=== PATIENT | male | born 1980 | race Caucasian/White ===

== ENCOUNTER 2016-04-27 17:28 | Emergency (ER) | payer OTHER ==
--- NOTE | 2016-04-27 17:56 | ERNOTE ---
Lower Extremity HPI - General Lower Extremities Pain: foot: right Time Seen by Provider: 04/27/16 17:43 Source: patient Exam Limitations: no limitations - Immun/Allergies/Home Medications Immunizations: IMMUNIZATION HX Immunizations Up to Date Yes History of Influenza Vaccine No Allergies/Adverse Reactions: Allergies Allergy/AdvReac Type Severity Reaction Status Date / Time ANTIBIOTIC EYE DROP Allergy Unknown Other Uncoded 04/27/16 17:39 Home Medications: HOME MEDICATIONS Polyethylene Glycol 3350 [Miralax] 17 gm PO DAILY PRN 05/07/14 [Last Taken 09/16] LORazepam [Ativan] 0.5 mg PO QID PRN 02/20/15 [Last Taken 02/20/15] Colchicine/Probenecid [Probenecid-Colchicine Tabs] 1 tab PO DAILY 01/07/16 [ Last Taken Unknown] Olopatadine HCl [Patanol] 1 - 2 drop EACHEYE BID #5 ml 01/10/16 [Last Taken Unknown] Meloxicam [Mobic] 15 mg PO DAILY 04/27/16 [Last Taken Unknown] - History of Present Illness Narrative: Patient has had problem with his right foot for about six weeks. He denies any injury and saw Dr Bailey over a month ago, was started on mobic and told to use a compression stocking. The swelling and pain has not gotten better and as he was unable to see his doctor today he came to the ER. The swelling in his toe has gotten better. He denies any other symptoms Method of Injury: Reports: no apparent injury Associated Symptoms: Denies: unable to bear weight, headache, chest pain, vomiting/diarrhea Other Injuries: Reports: none Subsequent Symptoms: Denies: sensory loss Review of Systems - Review of Systems Constitutional: Absent: recent illness, fever ENT: Present: other - mild URI symptoms Respiratory: Absent: shortness of breath, cough Cardiology: Absent: chest pain Gastrointestinal/Abdominal: Absent: nausea, vomiting, abdominal pain Genitourinary: Present: no symptoms reported Musculoskeletal: Present: See HPI Neurological: Absent: weakness, numbness - Patient's Past Medical History Patient History - Medical: Other - gout Patient History - Cardiac/Respiratory: No pertinent hx Patient History - Cancer: No Hx of Cancer Patient History - Surgical Procedures: No surgical history - Social History Living Situations: home Smoking Status: Never smoker Alcohol Use: rarely Drug Use: none - Immunizations Immunizations Up to Date: Yes ED Progress - Results and Orders Patient's Lab Results:: I have reviewed the patient's lab results. - Vital Signs Patient's Vital Signs:: I have reviewed the patient's vital signs. Vital Signs: Vital Signs 04/27/16 17:32 Temperature 36.5 C Pulse Rate 96 Respiratory 14 Rate Blood Pressure 133/88 O2 Sat by Pulse 95 Oximetry - X-Ray X-Ray #1 X-Ray: foot - soft tissue swelling, no acute bony injury Interpretation: Interp. by me - Progress/Reassessment Chief Complaint: Lower Extremity Pain/ Injury Progress Note-Subjective: 04/27/16 18:43 explained test results Departure Clinical Impression: Foot pain, right - Departure Disposition: Home self-care Condition: Good Additional Instructions: take your medications as instructed call Dr Bailey for a follow up appointment Referrals: Sera Bailey DPM [Staff Physician] -
[2016-04-27 18:10] LABS: Hemoglobin 15.9 gm/dL (13.5-18.0); Mean Cell Volume 92.4 fl (78-100); Mean Corpuscular Hemoglobin 31.9 pg (27-31); Mean Corpuscular Hgb Conc 34.6 g/dl (32-36); Mean Platelet Volume 10.8 fl (6.0-9.5); Neutrophil # 2.5 K/mm3 (1.3-6.0); Neutrophil % 57.7 % (42-75.0); Platelet Count 192 K/mm3 (150-450); Red Blood Count 4.98 M/mm3 (4.7-6.0); Red Cell Distribution Width 12.8 % (11.5-14.0); White Blood Count 4.4 K/mm3 (4.0-10.5)
[2016-04-27 18:25] LABS: Albumin * 3.7 gm/dl (3.4-5.0); Anion Gap 12.6 mmol/L (6.8-13.8); BUN/Creatinine Ratio 8.1 (9.0-21.6); Bilirubin, Total 0.6 mg/dL (0.0-1.1); CRP 0.5 mg/dL (0.0-0.9); Ca. Corrected For Albumin 9.2 mg/dL (8.4-10.2); Calcium * 9.3 mg/dL (7.9-10.9); Carbon Dioxide 26.4 mmol/L (24-32.6); Uric Acid 8.9 mg/dL (2.6-7.2)
[2016-04-27 18:58] VITALS: BP 121/65
== END 2016-04-27 18:45 | disposition home or self-care (01) ==
LOC: ER 17:28
DX: M79.671 Pain in right foot (principal)

== ENCOUNTER 2016-12-15 14:23 | Emergency (ER) | payer OTHER ==
--- NOTE | 2016-12-15 14:39 | ERNOTE ---
ER Male HPI Date of Service: 12/15/16 Stated Complaint: TROUBLE URINATING ER Male: dysuria Time Seen by Provider: 12/15/16 14:34 Source: patient Immunizations: IMMUNIZATION HX Immunizations Up to Date Yes History of Influenza Vaccine Yes Hx Pneumococcal Vaccination No Allergies/Adverse Reactions: Allergies ANTIBIOTIC EYE DROP Allergy (Unknown, Uncoded 04/27/16 17:39) Other irritated eye Home Medications: HOME MEDICATIONS Polyethylene Glycol 3350 [Miralax] 17 gm PO DAILY PRN 05/07/14 [Last Taken 09/16] LORazepam [Ativan] 0.5 mg PO QID PRN 02/20/15 [Last Taken 02/20/15] Probenecid/Colchicine [Probenecid-Colchicine Tabs] 1 tab PO DAILY 01/07/16 [ Last Taken Unknown] Meloxicam [Mobic] 15 mg PO DAILY 04/27/16 [Last Taken Unknown] Ciprofloxacin HCl [Cipro] 500 mg PO BID 10 Days #20 tablet 12/15/16 [Last Taken Unknown] Olopatadine HCl [Pataday] 2.5 ml OP DAILY 12/15/16 [Last Taken Unknown] - History of Present Illness Narrative: Patient's presents with a complaint of mild urinary symptoms frequency pressure and left testicular pain. Date (Duration): 12/11/16 Time (Timing): 08:00 Timing: Present: getting worse Quality: Present: moderate Onset Location: Present: scrotal, other - lower abdominal pressure with some tingling at the end of urination. Radiation: Present: scrotal - left testicular pain Activities at Onset: Present: none Prior Abdominal Problems: Absent: recent trauma Sexual Hardesty History: Present: single partner, same sex partner, other - currently signs for sexually transmitted infection exposure. Modifying Factors - (Improves): Present: other - has not tried any analgesics for pain. Modifying Factors - (Worsens): Present: movement, urinating - U initial urination and some painful but at the end of urination there is mild tingling. And urgency of having to return to urinate after completing urination. Associated Symptoms: Present: denies symptoms. Absent: fever/chills, nausea, vomiting, abdominal pain, dysuria, polyuria, low back pain Prior Treatment: Present: other - has not been seen for this chief complaint. Review of Systems - Review of Systems Constitutional: Present: no symptoms reported EYE: Present: no symptoms reported ENT: Present: no symptoms reported Respiratory: Present: no symptoms reported Cardiology: Present: no symptoms reported Gastrointestinal/Abdominal: Present: no symptoms reported Genitourinary: Present: pain - left testicular, other - denies hematuria rectal bleeding trauma.. Absent: hematuria, decreased urinary output, discharge Musculoskeletal: Present: no symptoms reported Skin: Present: no symptoms reported Endocrine: Present: no symptoms reported Hematologic/Lymphatic: Present: no symptoms reported Psych: Present: no symptoms reported All Other Systems: All systems neg except as marked - Narrative Narrative: PAST medical history, past surgical history, medications, allergies, social history, family history, were reviewed. - Patient's Past Medical History Patient History - Medical: No pertinent hx, Other Patient History - Cardiac/Respiratory: CPAP/BiPAP Home Use, Sleep Apnea Patient History - Cancer: No Hx of Cancer Patient History - Surgical Procedures: No surgical history, Hernia Repair Patient History - Other: None - Social History Living Situations: home Psych History: Hx of Depression Smoking Status: Never smoker Have you smoked in the past 12 months: No Do you dip or chew tobacco: No Alcohol Use: rarely Drug Use: none - Immunizations Immunizations Up to Date: Yes Hx Pneumococcal Vaccination: No History of Influenza Vaccine: Yes Physical Exam - Physical Exam General Appearance: Present: wd/wn, alert, mild distress - pain seems to be worsening. Head Exam: Present: normal inspection, no evidence of injury Eye Exam: Normal inspection: bilateral, PERRL: bilateral, EOMI: bilateral, Abnormal EOM: bilateral, Abnormal pupil: bilateral Ears, Nose, Throat: Present: normal ENT inspection Neck: Present: normal inspection, nontender Respiratory: Present: no respiratory distress, normal breath sounds Cardiovascular/Chest: Present: regular rate, rhythm, no murmur, normal peripheral pulses Peripheral Pulses: N=norm/S=strong/W=weak/B=bound/A=absent: Carotid (R): Normal , Carotid (L): Normal, Femoral (R): Normal, Femoral (L): Normal Gastrointestinal/Abdominal: Present: normal bowel sounds, nontender, nondistended, soft, no organomegaly Rectal Exam: Present: normal rectal tone, normal prostate. Absent: blood- streaked stool, mass, hemorrhoids Male Genitals Exam: Present: normal genitalia, epididymal tenderness, scrotum tenderness (L), testicular tenderness (L). Absent: scrotum tenderness (R), testicular tenderness (R) Back Exam: Present: normal inspection, normal range of motion, no CVA tenderness , no vertebral tenderness, CVA tenderness (R) Extremity Exam: Present: normal inspection, normal range of motion, no edema Neurological Exam: Present: alert, oriented, normal mood/affect, no motor/ sensory deficits Skin Exam: Present: normal color, warm/dry Lymphatic Exam: Present: no adenopathy ED Progress - Results and Orders Patient's Lab Results:: I have reviewed the patient's lab results. Results and Orders: Laboratory Tests 12/15/16 14:50 Urine Color Yellow Urine Appearance Clear Urine pH 7.0 Ur Specific Monette 1.010 Urine Protein Negative Urine Glucose (UA) Negative Urine Ketones Negative Urine Blood Negative Urine Nitrate Negative Urine Bilirubin Negative Urine Urobilinogen Normal Ur Leukocyte Esterase Negative Urine RBC None seen Urine WBC 0-5 Ur Epithelial Cells None seen Urine Bacteria None seen Urine Culture Comments No culture indicated - Vital Signs Patient's Vital Signs:: I have reviewed the patient's vital signs. Vital Signs: Vital Signs 12/15/16 14:30 Temperature 36.8 C Pulse Rate 71 Respiratory 18 Rate Blood Pressure 120/90 O2 Sat by Pulse 97 Oximetry - EKG EKG: other - CT/Ultrasound CT/Ultrasound Narrative: Testicular ultrasound report was reviewed see below No evidence of testicular torsion is noted left testicle has been small epididymal cysts noted. And a small hydrocele. Findings were relayed to patient he is currently stable for discharge we'll start him on Cipro 500 mg twice a day 10 days. - Progress/Reassessment Chief Complaint: Genitourinary Problem Progress:: Improved - Transfer of Care Expected Disposition: Discharge Procedures Ultrasound: other - left testicular epididymal cyst, no evidence of acute torsion Complications: Pt oracio procedure well Plan - Plan Plan: Patient's temperature discharge. I've asked that he follow up with Dr. Rivas, to ensure that the pain and discomfort has completely resolved after the antibiotic Cipro 500 mg twice a day for 10 days. Departure Clinical Impression: Epididymitis, Testicular pain, left, Epididymal cyst, Dysuria - Departure Disposition: Home self-care Additional Instructions: epididymitis / cyst Referrals: Sae Sexton MD [Primary Care Provider] - Prescriptions: Ciprofloxacin HCl [Cipro] 500 mg PO BID 10 Days #20 tablet
[2016-12-15 14:56] LABS: Urine Appearance Clear; Urine Bilirubin Negative (NEGATIVE); Urine Blood Negative /ul (NEGATIVE); Urine Color Yellow; Urine Ketone Negative (NEGATIVE)
[2016-12-15 14:57] LABS: Urine Nitrite Negative (NEGATIVE); Urine Protein Negative (NEGATIVE); Urine Urobilinogen Normal (NORMAL)
[2016-12-15 14:59] LABS: Urine Bacteria None Seen; Urine RBC None Seen /hpf (0-5); Urine WBC 0-5 /hpf (0-5)
[2016-12-15 15:44] LABS: Hematocrit 44.5 % (42.0-52.0); Hemoglobin 15.6 gm/dL (13.5-18.0); Mean Cell Volume 91.4 fl (78-100); Mean Corpuscular Hgb Conc 35.1 g/dl (32-36); Mean Platelet Volume 11.3 fl (6.0-9.5); Neutrophil # 2.1 K/mm3 (1.3-6.0); Platelet Count 178 K/mm3 (150-450); Red Blood Count 4.87 M/mm3 (4.7-6.0); Red Cell Distribution Width 12.4 % (11.5-14.0); White Blood Count 3.8 K/mm3 (4.0-10.5)
[2016-12-15 16:48] VITALS: BP 118/88
== END 2016-12-15 17:38 | disposition home or self-care (01) ==
LOC: ER 14:23
DX: N45.1 Epididymitis (principal); N50.812 Left testicular pain; N50.3 Cyst of epididymis; R30.0 Dysuria

== ENCOUNTER 2017-06-05 07:48 | Emergency (ER) | payer MEDICAID ==
[2017-06-05 08:08] LABS: Urine Bilirubin Negative (NEGATIVE); Urine Blood Negative /ul (NEGATIVE); Urine Ketone 5 mg/dL (NEGATIVE); Urine Protein 100 mg/dL (NEGATIVE); Urine Specific Gravity 1.025 SP.GR. (1.005-1.030); Urine Urobilinogen >=8.0 EU/dl (NORMAL)
[2017-06-05 08:26] LABS: Urine Appearance Slightly Cloudy; Urine Bacteria 2+; Urine Color Orange; Urine Nitrite Positive (NEGATIVE); Urine RBC 0-5 /hpf (0-5); Urine WBC 0-5 /hpf (0-5)
[2017-06-05] MEDS ORDERED: KETOROLAC TROMETHAMINE 60 MG/2 ML VIAL IM ONE (08:28)
[2017-06-05] MEDS: KETOROLAC TROMETHAMINE 60 MG/2 ML VIAL IM ONE (08:31)
[2017-06-05 08:35] VITALS: BP 126/83
--- NOTE | 2017-06-05 09:24 | ERNOTE ---
Abdominal HPI - Narrative Date of Service: 06/05/17 - General Chief Complaint: Abdominal Pain Time Seen by Provider: 06/05/17 08:13 Source: patient - Immun/Allergies/Home Medications Immunizatons: IMMUNIZATION HX Immunizations Up to Date Yes History of Influenza Vaccine No Hx Pneumococcal Vaccination No Allergies/Adverse Reactions: Allergies ANTIBIOTIC EYE DROP Allergy (Unknown, Uncoded 06/05/17 07:57) Other irritated eye Home Medications: HOME MEDICATIONS Polyethylene Glycol 3350 [Miralax] 17 gm PO DAILY PRN 05/07/14 [Last Taken 09/16] LORazepam [Ativan] 0.5 mg PO QID PRN 02/20/15 [Last Taken 02/20/15] Probenecid/Colchicine [Probenecid-Colchicine Tabs] 1 tab PO DAILY 01/07/16 [ Last Taken Unknown] Meloxicam [Mobic] 15 mg PO DAILY 04/27/16 [Last Taken Unknown] Olopatadine HCl [Pataday] 2.5 ml OP DAILY 12/15/16 [Last Taken Unknown] Ciprofloxacin HCl [Cipro] 500 mg PO BID #20 tab 06/05/17 [Last Taken Unknown] Phenazopyridine HCl [Pyridium] 100 mg PO TID #6 tab 06/05/17 [Last Taken Unknown ] traMADol HCL [Ultram] 50 mg PO QID PRN #20 tab 06/05/17 [Last Taken Unknown] - History of Present Illness Narrative: patient seen last pm with side pain and dysuria, work up last pm . pain persists Timing: constant, getting worse Quality: moderate, fullness Activities at Onset: none Modifying Factors - (Improves): Present: other - nothing Modifying Factors - (Worsens): Present: urinating Associated Symptoms: Present: denies symptoms Prior Abdominal Problems: Present: none Review of Systems - Narrative Narrative: unremarkable - Review of Systems Constitutional: Present: See HPI EYE: Present: no symptoms reported ENT: Present: no symptoms reported Respiratory: Present: no symptoms reported Cardiology: Present: no symptoms reported Gastrointestinal/Abdominal: Present: no symptoms reported Genitourinary: Present: See HPI, frequency, dysuria, other Musculoskeletal: Present: no symptoms reported Neurological: Present: no symptoms reported Endocrine: Present: no symptoms reported Hematologic/Lymphatic: Present: no symptoms reported Psych: Present: no symptoms reported All Other Systems: All systems neg except as marked - Patient's Past Medical History Patient History - Medical: Depression, Other Patient History - Cardiac/Respiratory: CPAP/BiPAP Home Use, Sleep Apnea Patient History - Cancer: No Hx of Cancer Patient History - Surgical Procedures: Hernia Repair Patient History - Other: None - Family History Family History:: no untoward family reactions to anesthesia, no familial bleeding tendencies, no family history of clotting disorders, no family history of premature - Social History Living Situations: spouse Abuse History: No History of abuse Psych History: Hx of Depression Does anyone smoke in the home?: Yes Smoking Status: Current every day smoker Have you smoked in the past 12 months: No Do you dip or chew tobacco: No Alcohol Use: rarely Drug Use: none - Immunizations Immunizations Up to Date: Yes Hx Pneumococcal Vaccination: No History of Influenza Vaccine: No Physical Exam - Physical Exam General Appearance: Present: mild distress Head Exam: Present: normal inspection, no evidence of injury Eye Exam: Normal inspection: bilateral, PERRL: bilateral, EOMI: bilateral Ears, Nose, Throat: Present: normal ENT inspection Neck: Present: normal inspection, nontender Respiratory: Present: no respiratory distress, normal breath sounds, no accessory muscle use, chest nontender, lungs clear Cardiovascular/Chest: Present: regular rate, rhythm, no murmur, normal peripheral pulses Peripheral Pulses: N=norm/S=strong/W=weak/B=bound/A=absent: Carotid (R): Normal , Carotid (L): Normal, Radial (R): Normal, Radial (L): Normal, Femoral (R): Normal, Femoral (L): Normal, Dorsalis-pedis (R): Normal, Dorsalis-pedis (L): Normal Gastrointestinal/Abdominal: Present: normal bowel sounds, tenderness, other - suprapubic tenderness Back Exam: Present: normal inspection, normal range of motion, no CVA tenderness , no vertebral tenderness Extremity Exam: Present: normal inspection, non-tender, normal range of motion, no edema Neurological Exam: Present: alert, oriented, normal mood/affect, no motor/ sensory deficits DTR: N=norm/NB=norm/brisk/A=abs/DD=dull/dimin/HC=hyperactive: Bicep (R): Normal , Bicep (L): Normal, Tricep (R): Normal, Tricep (L): Normal, Knee (R): Normal, Knee (L): Normal, Ankle (R): Normal, Ankle (L): Normal Skin Exam: Present: normal color, warm/dry Lymphatic Exam: Present: no adenopathy ED Progress - Date and Time Seen: Date and Time: 06/05/17 09:37 patient unchanged - Results and Orders Patient's Lab Results:: I have reviewed the patient's lab results. - Vital Signs Vital Signs: Vital Signs 06/05/17 06/05/17 07:52 08:34 Temperature 36.3 C L Pulse Rate 109 H 101 H Respiratory 16 15 Rate Blood Pressure 133/95 126/83 O2 Sat by Pulse 98 96 Oximetry - Progress/Reassessment Chief Complaint: Abdominal Pain Progress:: Unchanged - Transfer of Care Expected Disposition: Discharge Plan - Plan Plan: to be discharged Departure Clinical Impression: Urinary tract infection - Departure Disposition: Home self-care Condition: Fair Instructions: Urinary Tract Infection, Adult, [id number] Referrals: Donna Monroe ARNP [Primary Care Provider] - Prescriptions: Ciprofloxacin HCl [Cipro] 500 mg PO BID #20 tab traMADol HCL [Ultram] 50 mg PO QID PRN #20 tab PRN Reason: Pain
== END 2017-06-05 09:52 | disposition home or self-care (01) ==
LOC: ER 07:48
DX: N39.0 Urinary tract infection, site not specified (principal); F32.9 Major depressive disorder, single episode, unspecified; F17.200 Nicotine dependence, unspecified, uncomplicated